=== PATIENT | female | born 1965 | race Caucasian/White ===

== ENCOUNTER 2019-09-29 17:38 | Outpatient (CLI) | payer OTHER, SELFPAY ==
--- NOTE | ~2019-09-29 | MM_ITS ---
EXAMINATION: MM screening [facility] BI w arun HISTORY: Screening mammogram TECHNIQUE: Craniocaudal and mediolateral oblique 3-D tomosynthesis images were obtained and synthetic 2-D images were generated. CAD analysis was submitted and interpreted. COMPARISON: 09/17/2018, 06/19/2017, 05/01/2016 BREAST PARENCHYMAL COMPOSITION: There are scattered areas of fibroglandular density. FINDINGS: There is no evidence of suspicious mass, calcification, or architectural distortion to sugg est malignancy in either breast. There has been no suspicious interval change. IMPRESSION: 1. No mammographic evidence of malignancy. 2. Recommend routine screening mammography in one year. BI-RADS Category 1: Negative Reviewed, dictated and finalized at location A. SION ENGINEER
== END 2019-09-29 17:39 | disposition home or self-care (01) ==
LOC: ANHIMG 17:40
PROVIDERS: PCP Family Medicine; Visit Provider Family Medicine
DX: Z12.31 Encounter for screening mammogram for malignant neoplasm of breast (principal)
CPT/HCPCS: 77063; 77067

== ENCOUNTER 2020-10-08 15:08 | Outpatient (CLI) | payer OTHER, SELFPAY ==
--- NOTE | ~2020-10-08 | MM_ITS ---
EXAMINATION: MM screening [facility] BI w arun HISTORY: Screening TECHNIQUE: Craniocaudal and mediolateral oblique 3-D tomosynthesis images were obtained and synthetic 2-D images were generated. CAD analysis was submitted and interpreted. COMPARISON: Comparison to multiple prior studies sequentially, with oldest reviewed study dated 09/2012. BREAST PARENCHYMAL COMPOSITION: There are scattered areas of fibroglandular density. FINDINGS: There is no evidence of suspicious mass, calcification, or architectural distortion to sugg est malignancy in either breast. There has been no suspicious interval change. IMPRESSION: 1. No mammographic evidence of malignancy. 2. Recommend routine screening mammography in one year. BI-RADS Category 1: Negative Reviewed, dictated and finalized at location A. UP EDITOR
== END 2020-10-08 15:09 | disposition home or self-care (01) ==
LOC: ANHIMG 15:10
PROVIDERS: PCP Family Medicine; Visit Provider Family Medicine
DX: Z12.31 Encounter for screening mammogram for malignant neoplasm of breast (principal)
CPT/HCPCS: 77063; 77067

== ENCOUNTER 2021-10-15 15:41 | Outpatient (CLI) | payer OTHER, SELFPAY ==
--- NOTE | ~2021-10-15 | MM_ITS ---
EXAMINATION: MM screening [facility] BI w arun HISTORY: Screening TECHNIQUE: Craniocaudal and mediolateral oblique 3-D tomosynthesis images were obtained and synthetic 2-D images were generated. CAD analysis was submitted and interpreted. COMPARISON: Comparison to multiple prior studies sequentially, with oldest reviewed study dated 02/17. BREAST PARENCHYMAL COMPOSITION: The breasts are almost entirely fatty. FINDINGS: There is no evidence of suspicious mass, calcification, or architectural distortion to sugg est malignancy in either breast. There has been no suspicious interval change. IMPRESSION: 1. No mammographic evidence of malignancy. 2. Recommend routine screening mammography in one year. BI-RADS Category 1: Negative Reviewed, dictated and finalized at location A. ATOR CONSTRUCTOR
== END 2021-10-15 15:42 | disposition home or self-care (01) ==
PROVIDERS: PCP Family Medicine; Visit Provider Family Medicine
DX: Z12.31 Encounter for screening mammogram for malignant neoplasm of breast (principal)
CPT/HCPCS: 77063; 77067

== ENCOUNTER 2021-12-27 15:09 | Outpatient (CLI) | payer OTHER, SELFPAY ==
--- NOTE | ~2021-12-27 | XR_ITS ---
EXAMINATION: [id number] INDICATION: Left chest pain TECHNIQUE: A frontal view of the chest and 3 views of the left ribs were obtained. COMPARISON: None. FINDINGS: The lungs are free of acute opacities. There is no pleural effusion or pneumothorax. The ca rdiomediastinal silhouette is normal. No displaced rib fracture is identified. IMPRESSION: 1. No acute cardiopulmonary abnormality or evidence of displaced rib fracture. Reviewed, dictated and finalized at location A.
== END 2021-12-27 15:10 | disposition home or self-care (01) ==
LOC: ANHIMG 15:12
PROVIDERS: PCP Family Medicine; Visit Provider Family Medicine
DX: R07.81 Pleurodynia (principal)
CPT/HCPCS: 71101

== ENCOUNTER 2022-10-08 08:18 | Outpatient (CLI) | payer OTHER, SELFPAY ==
--- NOTE | 2022-10-13 19:38 | WPDHOMESLEEP ---
Sleep Study - Home Unattended Date of Study: 10/08/22 Ordering Provider: Irwin Rios MD Interpreting Provider: Leilani Murrieta MD Home Sleep Study Type: Watch PAT Height: 1.57 m Weight: 68.039 kg Body Mass Index: 27.4 Neck Circumference (inches): 13 [place]: 5 Reason for Sleep Study Poor quality sleep, frequent awakenings Sleep History Rhianna Haji is a 56-year-old female who does not sleep soundly. She does not sleep for very long. She wakes up during the night, tossing and turning. She is not rested on waking. This started in 2020 when she became her 's caregiver. He is quite ill, his needs are extensive and she is responsible for his care. In addition, she has a job. She attends to all household responsibilities. This is Causing her to be extremely tired, overwhelmed, frustrated and worried. She rarely awakens from sleep feeling short of breath. She does not awaken at night with heartburn, belching or coughing. She occasionally snores loudly, occasionally has trouble sleeping with a cold. She she rarely wakes up gasping for breath at night. She rarely has breathing problems at night observed by others. She occasionally sweats excessively night. She rarely notices her heart pounding or beating irregularly at night. She does not fall asleep during the day. She occasionally falls asleep involuntarily. She does not fall asleep while driving. She does not have loss of muscle tone with strong emotion. She rarely has daytime difficulties due to excessive sleepiness, works as an industrial waste treatment technician.. She does not feel paralyzed on waking or falling asleep. She does not have vivid dreamlike scenes on waking or falling asleep. She does not feel afraid to go to sleep. She occasionally has nightmares. She frequently remembers her dreams. She constantly has racing thoughts. She occasionally feels sad or depressed. She frequently has anxiety and muscular tension. She rarely notices parts of her body jerking. She frequently kicks at night. She occasionally has crawling and aching feelings in her legs. She occasionally has leg pain during the night. She occasionally has morning jaw pain. She frequently grinds her teeth during sleep. She frequently is bothered by pain during the day. She occasionally is awakened by pain during the night. She frequently wakes up feeling stiff in the morning. She occasionally wakes up with sore achy muscles and pain in the neck and spine. She has headaches, fatigue, nightmares and insomnia. She has nasal allergies. Normal bedtime is between 11:00 p.m. and midnight, falling asleep within minutes, waking several times throughout the night. Sometimes she will turn over and try to go back to sleep. At times, she is able to return to sleep within minutes but on other occasions, this may take up to an hour. These awakenings occur soon after falling asleep and in the middle of the night. She wakes by 6:00 a.m.. Her weekend schedule is the same. She does not take naps in the afternoon or evening. Short nap lasting 10 or 15 minutes is not refreshing. She is usually drowsy for 1 hour or more after waking. She feels better in the afternoon or evening compared to the morning. Habits: Tobacco half pack per day. Caffeine up to 64 oz a day. No alcohol or recreational substances. [facility] Past Medical History Medical History (Updated 10/13/22 @ 21:39 by Leilani Murrieta MD) Anxiety Chronic deep vein thrombosis (DVT) of distal vein of left lower extremity Colon polyp HPV in female Nicotine dependence Overweight (BMI 25.0-29.9) Sacroiliac dysfunction Sacroiliac inflammation Sleep apnea, unspecified Trigger point Tubular adenoma of colon Surgical History Surgical History History of ankle surgery left History of dilation and curettage History of endometrial ablation History of total hysterectomy Family History Famil
[2022-10-13 21:37] VITALS: BMI 27.4
== END 2022-10-09 14:53 | disposition home or self-care (01) ==
LOC: ANHCSM 08:19
PROVIDERS: PCP Family Medicine; Visit Provider Family Medicine
DX: G47.33 Obstructive sleep apnea (adult) (pediatric) (principal)
CPT/HCPCS: 95800

== ENCOUNTER 2022-12-16 15:07 | Outpatient (CLI) | payer OTHER, SELFPAY ==
--- NOTE | ~2022-12-16 | MM_ITS ---
EXAMINATION: MM screening [facility] BI w arun HISTORY: Screening mammogram TECHNIQUE: Craniocaudal and mediolateral oblique 3-D tomosynthesis images were obtained and synthetic 2-D images were generated. CAD analysis was submitted and interpreted. COMPARISON: 10/15/2021, 10/08/2020, 09/29/2019 BREAST PARENCHYMAL COMPOSITION:There are scattered areas of fibroglandular density. FINDINGS: No suspicious mass, calcification, or architectural distortion are identified in either ami ast to suggest malignancy. There has been no suspicious interval change. IMPRESSION: No mammographic evidence of malignancy. Recommend routine screening mammography in one year. BI-RADS Category 1: Negative Reviewed, dictated and finalized at location .
== END 2022-12-16 15:08 | disposition home or self-care (01) ==
LOC: ANHIMG 15:10
PROVIDERS: PCP Family Medicine; Visit Provider Family Medicine
DX: Z12.31 Encounter for screening mammogram for malignant neoplasm of breast (principal)
CPT/HCPCS: 77063; 77067

== ENCOUNTER 2023-03-30 12:48 | Outpatient (CLI) | payer OTHER, SELFPAY ==
--- NOTE | ~2023-03-30 | XR_ITS ---
EXAMINATION: XR foot LT min 3V DATE: 03/30/2023 13:10 INDICATION: Left foot pain, initial encounter TECHNIQUE: Dorsoplantar, lateral, and 2 oblique views of the left foot were obtained. COMPARISON: None. FINDINGS: There is an acute, traumatic, closed, comminuted distal neck fracture of the fifth metatars al. Soft tissue swelling is seen near the fracture. No additional fracture is identified. The joint s paces are unremarkable. A plantar calcaneal enthesophyte is noted. IMPRESSION: 1. Comminuted distal neck fracture of the fifth metatarsal. Reviewed, dictated and finalized at location A.
== END 2023-03-30 12:49 | disposition home or self-care (01) ==
PROVIDERS: PCP Family Medicine; Visit Provider Family Medicine
DX: S92.352A Displaced fracture of fifth metatarsal bone, left foot, initial encounter for closed fracture (principal); X58.XXXA Exposure to other specified factors, initial encounter
CPT/HCPCS: 73630

== ENCOUNTER 2023-12-23 11:53 | Outpatient (CLI) | payer OTHER, SELFPAY ==
--- NOTE | ~2023-12-23 | MM_ITS ---
EXAMINATION: MM screening [facility] BI w arun HISTORY: Screening mammogram TECHNIQUE: Craniocaudal and mediolateral oblique 3-D tomosynthesis images were obtained and synthetic 2-D images were generated. CAD analysis was submitted and interpreted. COMPARISON: 12/16/2022, 10/15/2021 bilateral screening mammogram examinations BREAST PARENCHYMAL COMPOSITION: There are scattered areas of fibroglandular density. FINDINGS: There is no evidence of suspicious mass, calcification, or architectural distortion to sugg est malignancy in either breast. There has been no suspicious interval change. IMPRESSION: 1. No mammographic evidence of malignancy. 2. Recommend routine screening mammography in one year. BI-RADS Category 1: Negative Reviewed, dictated and finalized at location B.
== END 2023-12-23 11:54 | disposition home or self-care (01) ==
LOC: CHSIMG 11:56
PROVIDERS: PCP Family Medicine; Visit Provider Family Medicine
DX: Z12.31 Encounter for screening mammogram for malignant neoplasm of breast (principal)
CPT/HCPCS: 77063; 77067

== ENCOUNTER 2024-04-13 13:48 | Outpatient (CLI) | payer OTHER, SELFPAY | END 2024-04-13 13:49 | disposition home or self-care (01) | LOC: ANHIMG 13:50 | PROVIDERS: PCP Family Medicine; Visit Provider Nurse Practitioner Family | DX: M25.562 Pain in left knee (principal) | CPT/HCPCS: 73562 ==